=== PATIENT | female | born 2000 | race Two or more races ===

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

== ENCOUNTER 2020-05-08 11:06 | Emergency (ER) | payer MEDICAID ==
[~2020-05-08] VITALS: Ht 165.1 cm; Wt 108.9 kg
[2020-05-08 12:09] VITALS: BP 132/83
== END 2020-05-08 14:49 | disposition home or self-care (01) ==
LOC: ER 11:06
DX: G43.909 Migraine, unspecified, not intractable, without status migrainosus (principal)
CPT/HCPCS: 70450

== ENCOUNTER 2023-08-30 19:37 | Emergency (ER) | payer MEDICAID ==
[~2023-08-30] VITALS: Ht 165.1 cm; Wt 127.7 kg
[2023-08-30 19:59] VITALS: BP 158/95; PULSE 114; RESP 18; O2SAT 8
== END 2023-08-31 03:37 | disposition left against medical advice (07) ==
LOC: ER 19:37
DX: R06.02 Shortness of breath (principal); R21 Rash and other nonspecific skin eruption; Z53.21 Procedure and treatment not carried out due to patient leaving prior to being seen by health care provider